=== PATIENT | male | born 1950 | race Caucasian/White ===

== ENCOUNTER 2019-02-27 08:25 | Inpatient (IN) | payer MEDICARE, MEDICAID ==
[~2019-02-27] VITALS: Ht 177.8 cm; Wt 97.9 kg
[~2019-02-27 08:25] MED LIST: ATEN100T; GABA300C10; OXYM10TA19 PO
[2019-02-27 08:59] LABS: BASOPHILS # (AUTO) 0.05 x10^3/uL (0-0.1); BASOPHILS % (AUTO) 0 % (0-1); EOSINOPHILS # (AUTO) 0.06 x10^3/uL (0-0.4); EOSINOPHILS % (AUTO) 1 % (1-7); LYMPHOCYTES # (AUTO) 0.84 x10^3/uL (1-3.4); LYMPHOCYTES % (AUTO) 6 % (22-44); MD NO; MEAN CORPUSCULAR HEMOGLOBIN 26.1 pg (27.5-34.5); MEAN CORPUSCULAR HGB CONC 32.2 g/dL (33.2-36.2); MEAN CORPUSCULAR VOLUME 81.1 fL (81-97); MEAN PLATELET VOLUME 7.2 fL (7.4-10.4); MONOCYTES # (AUTO) 0.58 x10^3/uL (0.2-0.8); MONOCYTES % (AUTO) 4 % (2-9); NEUTROPHILS # (AUTO) 11.94 x10^3/uL (1.8-6.8); NEUTROPHILS % (AUTO) 89 % (42-75); PLATELET COUNT 616 x10^3/uL (130-400); RED BLOOD COUNT 3.52 x10^6/uL (4.38-5.82); RED CELL DISTRIBUTION WIDTH 16.7 % (9.4-14.8)
[2019-02-27 09:08] LABS: CHLORIDE 100 mmol/L (98-107)
[2019-02-27 09:09] LABS: ALBUMIN 2.5 g/dL (3.4-5.0); ANION GAP 8 mmol/L (5-15); CALCIUM 8.6 mg/dL (8.5-10.1)
[2019-02-27 09:14] LABS: CREATININE 4.48 mg/dL (0.7-1.3)
[2019-02-27] MEDS ORDERED: FUROSEMIDE 20 MG/2 ML ONE (09:21)
--- NOTE | 2019-02-27 09:29 | NUR ---
Pt has greater than 999 mL of urine in bladder at this time per bladder scanner. EDMD aware.
[2019-02-27] MEDS ORDERED: FUROSEMIDE 20 MG/2 ML IV ONE (09:30)
[2019-02-27 10:02] LABS: ALBUMIN 2.5 g/dL (3.4-5.0)
[2019-02-27 10:07] LABS: ALANINE AMINOTRANSFERASE 37 U/L (12-78); ALKALINE PHOSPHATASE 95 U/L (45-117); BILIRUBIN, DIRECT 0.2 mg/dL (0.1-0.2); BILIRUBIN,INDIRECT 0.6 mg/dL (0.0-2.0); BILIRUBIN,TOTAL 0.8 mg/dL (0.2-1.0); TOTAL PROTEIN 7.8 g/dL (6.4-8.2)
[2019-02-27 10:10] LABS: TROPONIN I 0.863 ng/mL (0.000-0.045)
--- NOTE | 2019-02-27 10:19 | NUR ---
Pt transported on gurney to . NADN. No needs expressed.
[2019-02-27] MEDS ORDERED: ASPIRIN 81 MG TABLET CHEW PO ONE (10:30)
[2019-02-27 11:38] LABS: MICROSCOPIC AUTO
[2019-02-27 11:40] LABS: CULTURE INDICATED? YES
[2019-02-27] MEDS ORDERED: ASPIRIN 81 MG TABLET CHEW ONE (11:55)
[2019-02-27] MEDS ORDERED: FENTANYL PATCH TD (11:57)
[2019-02-27] MEDS ORDERED: hydrALAzine 20 MG/ML, 1ML IVPush PRN (12:00)
[2019-02-27] MEDS ORDERED: ONDANSETRON 2MG/ML, 2ML IVPush PRN (12:00)
[2019-02-27] MEDS ORDERED: morphine SULFATE 10 MG/ML, 1ML IVPush PRN (12:00)
[2019-02-27] MEDS ORDERED: FENTANYL 12 MCG PATCH TD SCH (12:30)
[2019-02-27] MEDS: CEFTRIAXONE PMX 1GM/50ML 50 ML IV ONE ×2 (12:48→13:14)
[2019-02-27] MEDS ORDERED: TAMSULOSIN 0.4 MG CAP.ER.24H ONE (12:52)
[2019-02-27] MEDS ORDERED: CEFTRIAXONE PMX 1GM/50ML 50 ML ONE ×2 (12:53→13:38)
[2019-02-27] MEDS ORDERED: POTASSIUM CHLORIDE 20 MEQ TAB.ER.PRT ONE (12:53)
[2019-02-27] MEDS ORDERED: HEPARIN 5,000 UNITS/ML, 1ML ONE (12:53)
[2019-02-27] MEDS: HEPARIN 5,000 UNITS/ML, 1ML SQ SCH ×2 (13:13→21:06)
[2019-02-27] MEDS: POTASSIUM CHLORIDE 20 MEQ TAB.ER.PRT PO SCH (13:13)
[2019-02-27] MEDS: TAMSULOSIN 0.4 MG CAP.ER.24H PO SCH (13:13)
--- NOTE | 2019-02-27 13:21 | NUR ---
Provided pt hospital bed. Pt appreciative. Provided pt cardiac lunch tray. Pt appreciative. Pt states, "I am feeling better." Provided medications per EMAR. NADN. No other needs expressed. Pt has friend at bedside. Call light within reach. Pt reconnected to stockroom keeper. NIBP cuff, and continous pulse ox monitor.
[2019-02-27] MEDS ORDERED: CEFTRIAXONE PMX 2GM/50ML 50 ML ONE (13:28)
[2019-02-27] MEDS: CEFTRIAXONE PMX 2GM/50ML 50 ML IV SCH (13:52)
--- NOTE | 2019-02-27 13:54 | NUR ---
Patient received a total of 2Gm/100mL Ceftriaxone Pmx. Dose was received in two administrations of 1Gm/50mL. Verbal order discussed with admitting MD Navarro.
--- NOTE | 2019-02-27 15:31 | NUR ---
Pt transfered to floor from ED and left with all personal belongings. LORI. Pt left with all personal belongings.
[2019-02-27 15:41] VITALS: BP 114/55
[2019-02-27 15:43] LABS: TROPONIN I 0.825 ng/mL (0.000-0.045)
[2019-02-27] MEDS ORDERED: FUROSEMIDE 40 MG/4 ML IV SCH (17:00)
[2019-02-27 20:17] VITALS: BP 128/69
[2019-02-27] MEDS: ACETAMINOPHEN 325 MG TABLET PO PRN (21:06)
[2019-02-28] MEDS: ACETAMINOPHEN 325 MG TABLET PO PRN ×2 (01:19→20:05)
[2019-02-28 02:00] VITALS: BP 119/68
[2019-02-28] MEDS: HEPARIN 5,000 UNITS/ML, 1ML SQ SCH ×3 (04:35→20:05)
[2019-02-28 05:21] LABS: BASOPHILS # (AUTO) 0.01 x10^3/uL (0-0.1); BASOPHILS % (AUTO) 0 % (0-1); EOSINOPHILS # (AUTO) 0.08 x10^3/uL (0-0.4); EOSINOPHILS % (AUTO) 1 % (1-7); LYMPHOCYTES # (AUTO) 0.85 x10^3/uL (1-3.4); LYMPHOCYTES % (AUTO) 8 % (22-44); MD NO; MEAN CORPUSCULAR HEMOGLOBIN 25.7 pg (27.5-34.5); MEAN CORPUSCULAR HGB CONC 31.2 g/dL (33.2-36.2); MEAN CORPUSCULAR VOLUME 82.4 fL (81-97); MEAN PLATELET VOLUME 7.4 fL (7.4-10.4); MONOCYTES # (AUTO) 0.59 x10^3/uL (0.2-0.8); MONOCYTES % (AUTO) 5 % (2-9); NEUTROPHILS # (AUTO) 9.44 x10^3/uL (1.8-6.8); NEUTROPHILS % (AUTO) 86 % (42-75); PLATELET COUNT 533 x10^3/uL (130-400); RED BLOOD COUNT 3.22 x10^6/uL (4.38-5.82); RED CELL DISTRIBUTION WIDTH 17.3 % (9.4-14.8)
[2019-02-28 05:28] LABS: ALBUMIN 1.9 g/dL (3.4-5.0); ANION GAP 5 mmol/L (5-15); CALCIUM 7.9 mg/dL (8.5-10.1); CHLORIDE 108 mmol/L (98-107)
[2019-02-28 05:33] LABS: ALANINE AMINOTRANSFERASE 25 U/L (12-78); ALKALINE PHOSPHATASE 78 U/L (45-117); BILIRUBIN,TOTAL 0.6 mg/dL (0.2-1.0); CHOL/HDL RATIO 2.5; CHOLESTEROL, TOTAL 123 mg/dL (140-239); CREATININE 1.98 mg/dL (0.7-1.3); HDL CHOL % 40 % (26-37); HDL CHOLESTEROL (DIRECT) 49 mg/dL (40-60); LDL CHOLESTEROL,CALCULATED 50 mg/dL (54-169); TOTAL PROTEIN 6.8 g/dL (6.4-8.2); TRIGLYCERIDES 119 mg/dL (50-200); VLDL CHOLESTEROL 24 mg/dL (0-25)
[2019-02-28] MEDS ORDERED: ERGOCALCIFEROL 50,000 UNIT CAPSULE PO SCH (08:00)
[2019-02-28 08:24] VITALS: BP 119/70
[2019-02-28] MEDS: IRON SUCROSE COMPLEX 100MG/5ML IV SCH (10:29)
[2019-02-28] MEDS: TAMSULOSIN 0.4 MG CAP.ER.24H PO SCH (10:30)
[2019-02-28] MEDS: POTASSIUM CHLORIDE 20 MEQ TAB.ER.PRT PO SCH (10:30)
[2019-02-28] MEDS: FAMOTIDINE 20 MG TABLET PO SCH (12:18)
[2019-02-28] MEDS: CEFTRIAXONE PMX 2GM/50ML 50 ML IV SCH (12:23)
[2019-02-28 14:00] VITALS: BP 140/62
[2019-02-28] MEDS ORDERED: POLYETHYLENE GLYCOL 17 GM PACKET NG ONE (18:00)
[2019-02-28 19:34] VITALS: BP 155/85
[2019-02-28] MEDS: SENNA 176 MG/5 ML ORAL SOL NG SCH (22:00)
[2019-02-28] MEDS: DOCUSATE 100 MG CAPSULE PO SCH (22:00)
[2019-03-01 00:40] VITALS: BP 130/78
[2019-03-01] MEDS ORDERED: DIPHENHYDRAMINE 25 MG CAPSULE ONE (00:55)
[2019-03-01] MEDS: DIPHENHYDRAMINE 25 MG CAPSULE PO PRN ×2 (00:57→20:47)
[2019-03-01] MEDS: HEPARIN 5,000 UNITS/ML, 1ML SQ SCH ×3 (05:37→20:47)
[2019-03-01] MEDS: IRON SUCROSE COMPLEX 100MG/5ML IV SCH (08:14)
[2019-03-01] MEDS: FAMOTIDINE 20 MG TABLET PO SCH (08:15)
[2019-03-01] MEDS: SENNA 176 MG/5 ML ORAL SOL NG SCH (08:15)
[2019-03-01] MEDS: TAMSULOSIN 0.4 MG CAP.ER.24H PO SCH (08:15)
[2019-03-01] MEDS: POTASSIUM CHLORIDE 20 MEQ TAB.ER.PRT PO SCH (08:15)
[2019-03-01] MEDS: DOCUSATE 100 MG CAPSULE PO SCH (08:16)
[2019-03-01 08:53] VITALS: BP 143/82
[2019-03-01 09:27] LABS: ALBUMIN 2.3 g/dL (3.4-5.0); ANION GAP 8 mmol/L (5-15); CHLORIDE 111 mmol/L (98-107); CREATININE 1.18 mg/dL (0.7-1.3)
[2019-03-01] MEDS: NEUTRA PHOS K 250 MG TABLET PO SCH ×2 (10:50→20:47)
[2019-03-01] MEDS: CEFTRIAXONE PMX 2GM/50ML 50 ML IV SCH (12:08)
[2019-03-01 14:13] VITALS: BP 145/86
[2019-03-01 19:55] VITALS: BP 137/71
[2019-03-01] MEDS: ACETAMINOPHEN 325 MG TABLET PO PRN (20:47)
[2019-03-02 01:48] VITALS: BP 156/91
[2019-03-02] MEDS: HEPARIN 5,000 UNITS/ML, 1ML SQ SCH ×2 (04:05→12:12)
[2019-03-02 08:25] VITALS: BP 159/89
[2019-03-02] MEDS: SENNA 176 MG/5 ML ORAL SOL NG SCH (09:00)
[2019-03-02] MEDS: DOCUSATE 100 MG CAPSULE PO SCH (09:00)
[2019-03-02] MEDS ORDERED: METOPROLOL TARTRATE 25 MG TABLET PO SCH (09:00)
[2019-03-02] MEDS: POTASSIUM CHLORIDE 20 MEQ TAB.ER.PRT PO SCH (09:12)
[2019-03-02] MEDS: NEUTRA PHOS K 250 MG TABLET PO SCH (09:12)
[2019-03-02] MEDS: FAMOTIDINE 20 MG TABLET PO SCH (09:12)
[2019-03-02] MEDS: IRON SUCROSE COMPLEX 100MG/5ML IV SCH (09:13)
[2019-03-02] MEDS: TAMSULOSIN 0.4 MG CAP.ER.24H PO SCH (09:13)
[2019-03-02] MEDS: CEFTRIAXONE PMX 2GM/50ML 50 ML IV SCH (12:12)
[2019-03-02] MEDS ORDERED: NEUTRA PHOS K 250 MG TABLET PO SCH (12:30)
[2019-03-02] MEDS ORDERED: FENTANYL REMOVE PATCH NOTE XX SCH (12:30)
[2019-03-02 12:48] VITALS: BP 142/83
[2019-03-02] MEDS ORDERED: TAMS-11 PO (12:48)
[2019-03-02] MEDS ORDERED: CEFD300C37 PO (12:48)
[2019-03-02] MEDS ORDERED: METO25TA35 PO (12:48)
[2019-03-02] MEDS ORDERED: FERR325T18 PO (12:48)
[2019-03-02] MEDS ORDERED: ERGO500017 PO (12:48)
[2019-03-02] MEDS ORDERED: PHOS250T3 PO (12:48)
== END 2019-03-02 16:39 | disposition home health service (06) | DRG 871 ==
LOC: ED 10:41 → EDIP 11:03 → 5SO 15:10 → DCLOUNGE 03-02 16:20
PROVIDERS: ADMIT Internal Medicine; ATTEND Internal Medicine
PROC: 0T9B70Z Drainage of Bladder with Drainage Device, Via Natural or Artificial Opening (ICD-10-PCS; principal; 2019-02-27)
DX: A41.9 Sepsis, unspecified organism (principal); J96.01 Acute respiratory failure with hypoxia; N13.6 Pyonephrosis; N17.9 Acute kidney failure, unspecified; I13.0 Hypertensive heart and chronic kidney disease with heart failure and stage 1 through stage 4 chronic kidney disease, or unspecified chronic kidney disease; I50.9 Heart failure, unspecified; Z88.0 Allergy status to penicillin; Z91.048 Other nonmedicinal substance allergy status; D50.9 Iron deficiency anemia, unspecified; E55.9 Vitamin D deficiency, unspecified; E86.0 Dehydration; G89.29 Other chronic pain; I25.10 Atherosclerotic heart disease of native coronary artery without angina pectoris; K59.00 Constipation, unspecified; N18.9 Chronic kidney disease, unspecified; N28.1 Cyst of kidney, acquired; N40.1 Benign prostatic hyperplasia with lower urinary tract symptoms; R33.8 Other retention of urine; Z95.5 Presence of coronary angioplasty implant and graft
CPT/HCPCS: 36415; 71045; 76770; 80048; 80053; 80061; 80069; 80076; 81001; 82040; 82306; 82728; 83540; 83550; 83605; 83735; 83880; 83970; 84100; 84145; 84443; 84466; 84484; 85025; 87040; 87086; 93005; 96374; 96375; C8929; G0378; J0696; J1644; J1756; Q9957; J1940; Q0163

== ENCOUNTER 2019-03-13 10:19 | Emergency (ER) | payer MEDICARE, MEDICAID ==
[~2019-03-13] VITALS: Ht 177.8 cm; Wt 92.1 kg
[~2019-03-13 10:19] MED LIST changes: +CEFD300C37 PO; +ERGO500017 PO; +FENTANYL PATCH TD; +FERR325T18 PO; +METO25TA35 PO; +PHOS250T3 PO; +TAMS-11 PO
--- NOTE | 2019-03-13 11:52 | NUR ---
PT AMBULATORY TO STEADY GAIT TO ROOM 21 WITH STAFF.
--- NOTE | 2019-03-13 12:04 | NUR ---
PT HERE WITH C/O NEEDING CATHETER REMOVED. PT STATES PREVIOUSLY ADMITTED 7 DAYS AGO FOR CHF EXACERBATION. PT STATES HE NEEDS THE CATHETER OUT PER HIS DISCHARGE PAPERWORK. PT DRESSED IN GOWN, ATTACHED TO MONITOR, MD AT BEDSIDE FOR EXAM. PT HAS CATHETER AND STATES HE HAS HAD DIFFICULTY IN CARING FOR IT. NAD, ROOM AIR, CALL LIGHT WITHIN REACH. SIDERAIL X [address]
--- NOTE | 2019-03-13 12:06 | NUR ---
PER MD, REMOVED LAGUERRE. LAGUERRE REMOVED BY THIS RN. COUDE CATHETER REMOVED WITH NO DISCOMFORT PER PT. URINAL AT BEDSIDE FOR VOIDING POST LAGUERRE REMOVAL.
--- NOTE | 2019-03-13 12:36 | NUR ---
PT ASSISTED TO EOB TO VOID. STEADY GAIT.
--- NOTE | 2019-03-13 13:08 | NUR ---
PT STATES HE CANNOT VOID, PLAN TO UPDATE MD AND DO BLADDER SCAN.
--- NOTE | 2019-03-13 13:17 | NUR ---
PER TASK RN: PT UNABLE TO VOID, BLADDER SCAN PERFORMED AND RESULTS WAS 80ML. PT GIVEN WATER AND CRANBERRY JUICE, WILL ATTEMPT TO VOID AGAIN. PT EDUCATED THAT IF UNABLE TO VOID, POSSIBLITY OF NEED FOR CATHETER PROIR TO DISCHARGE.
--- NOTE | 2019-03-13 13:30 | NUR ---
PT STATES UNABLE TO VOID, REQUESTING CATHETER, MD TO BE UPDATED.
--- NOTE | 2019-03-13 14:39 | NUR ---
TASK RN AT BEDSIDE FOR ATTEMPT AT LAGUERRE PLACEMENT.
[2019-03-13 14:44] VITALS: BP 125/70
--- NOTE | 2019-03-13 14:46 | NUR ---
BREAK NOTE: LAGUERRE CATH WAS PLACED. STERILE PROCEDURES MAINTAINED. PT.'S VITALS ARE STABLE.
--- NOTE | 2019-03-13 15:26 | NUR ---
Patient/Caregiver given discharge instructions and they have confirmed that they understand the instructions. Patient ambulatory with steady gait.
== END 2019-03-13 16:01 | disposition home or self-care (01) ==
LOC: ED 13:18
DX: N40.1 Benign prostatic hyperplasia with lower urinary tract symptoms (principal); R33.8 Other retention of urine; I50.9 Heart failure, unspecified
CPT/HCPCS: 51702; 99283; 99284

== ENCOUNTER → 2019-04-24 | Outpatient (CLI) | payer MEDICARE, MEDICAID ==
[~2019-04-24] MED LIST changes: +REGADENOSON 0.4 MG/5 ML SYRINGE ONE
== END | disposition home or self-care (01) ==
LOC: CFH 07:15
PROVIDERS: ATTEND Internal Medicine Cardiovascular Disease
DX: I25.9 Chronic ischemic heart disease, unspecified (principal)
CPT/HCPCS: 78452; 93017; 93306; A9502; J2785

== ENCOUNTER 2019-05-18 06:53 | Observation (INO) | payer MEDICARE, MEDICAID ==
[~2019-05-18] VITALS: Ht 175.3 cm; Wt 86.2 kg
[~2019-05-18 06:53] MED LIST changes: -REGADENOSON 0.4 MG/5 ML SYRINGE ONE
[2019-05-18] MEDS ORDERED: ASPIRIN 325 MG TABLET EC PO ONE (08:00)
[2019-05-18] MEDS ORDERED: PLEASE ENTER HEIGHT AND WEIGHT MC SCH (08:00)
[2019-05-18 08:25] VITALS: BP 149/87
[2019-05-18] MEDS: SODIUM CHLORIDE 0.9% 1,000 ML IV SCH ×5 (08:30→19:48)
[2019-05-18] MEDS ORDERED: LUBI8CAP4 PO (08:33)
[2019-05-18] MEDS ORDERED: POTA20PA25 PO (08:34)
[2019-05-18] MEDS ORDERED: GABA300C10 PO (08:34)
[2019-05-18] MEDS ORDERED: OMEP-110 PO (08:35)
[2019-05-18] MEDS ORDERED: HYDR-826 PO (08:36)
[2019-05-18 08:37] LABS: ALBUMIN 3.2 g/dL (3.4-5.0); ANION GAP 6 mmol/L (5-15); CALCIUM 8.7 mg/dL (8.5-10.1); CHLORIDE 109 mmol/L (98-107)
[2019-05-18] MEDS ORDERED: METO25TA4 PO (08:37)
[2019-05-18 08:40] LABS: ALANINE AMINOTRANSFERASE 23 U/L (12-78); ALKALINE PHOSPHATASE 94 U/L (45-117); BILIRUBIN,TOTAL 0.7 mg/dL (0.2-1.0); CREATININE 0.96 mg/dL (0.7-1.3); TOTAL PROTEIN 7.6 g/dL (6.4-8.2)
[2019-05-18 09:08] LABS: BASOPHILS # (AUTO) 0.09 x10^3/uL (0-0.1); BASOPHILS % (AUTO) 1 % (0-1); EOSINOPHILS # (AUTO) 0.06 x10^3/uL (0-0.4); EOSINOPHILS % (AUTO) 1 % (1-7); LYMPHOCYTES # (AUTO) 1.22 x10^3/uL (1-3.4); LYMPHOCYTES % (AUTO) 14 % (22-44); MD NO; MEAN CORPUSCULAR HEMOGLOBIN 25.6 pg (27.5-34.5); MEAN CORPUSCULAR HGB CONC 32.2 g/dL (33.2-36.2); MEAN CORPUSCULAR VOLUME 79.7 fL (81-97); MEAN PLATELET VOLUME 9.4 fL (7.4-10.4); MONOCYTES # (AUTO) 0.55 x10^3/uL (0.2-0.8); MONOCYTES % (AUTO) 6 % (2-9); NEUTROPHILS % (AUTO) 78 % (42-75); PLATELET COUNT 288 x10^3/uL (130-400); RED BLOOD COUNT 4.87 x10^6/uL (4.38-5.82)
[2019-05-18] MEDS ORDERED: HEPARIN 1,000 UNITS/ML, 10ML ONE (10:10)
[2019-05-18] MEDS ORDERED: BIVALIRUDIN 250 MG ONE (10:21)
[2019-05-18] MEDS ORDERED: PRASUGREL 10 MG TABLET ONE (10:22)
[2019-05-18] MEDS ORDERED: MIDAZOLAM 1 MG/ML, 5ML ONE (10:26)
[2019-05-18] MEDS ORDERED: FENTANYL PF 100 MCG/2ML ONE (10:26)
[2019-05-18 11:32] LABS: PROTHROMBIN TIME 10.6 Seconds (9.6-11.5)
[2019-05-18] MEDS ORDERED: PROPOFOL 10 MG/ML, 20ML ONE (15:15)
[2019-05-18 16:47] VITALS: BP 159/89
[2019-05-18] MEDS: GABAPENTIN 100 MG CAPSULE PO SCH ×2 (17:17→21:42)
[2019-05-18 19:10] VITALS: BP 142/81
[2019-05-18] MEDS ORDERED: ATORVASTATIN 40 MG TABLET PO SCH (21:00)
[2019-05-18 21:39] VITALS: BP 127/72
[2019-05-18] MEDS: METOPROLOL TARTRATE 25 MG TAB PO SCH (21:42)
[2019-05-18] MEDS ORDERED: CALCIUM CARBONATE 500 MG TAB.CHEW PO PRN (23:00)
[2019-05-19 00:57] VITALS: BP 123/76
[2019-05-19] MEDS: SODIUM CHLORIDE 0.9% 1,000 ML IV SCH ×2 (00:59→11:38)
[2019-05-19] MEDS ORDERED: NITROGLYCERIN 0.4 MG/SPRAY SL PRN (02:00)
[2019-05-19] MEDS ORDERED: NITROGLYCERIN 0.4 MG BOTTLE (25 TABS) SL PRN (02:00)
[2019-05-19] MEDS ORDERED: MAALOX/HYOSCYAMINE/LIDOCAINE 45 ML BTL PO ONE (02:30)
[2019-05-19 04:29] LABS: ANION GAP 6 mmol/L (5-15); CALCIUM 8.4 mg/dL (8.5-10.1); CHLORIDE 109 mmol/L (98-107); CREATININE 0.94 mg/dL (0.7-1.3)
[2019-05-19] MEDS ORDERED: ASPIRIN 81 MG TABLET EC PO SCH (06:00)
[2019-05-19] MEDS: GABAPENTIN 100 MG CAPSULE PO SCH ×2 (06:01→11:22)
[2019-05-19] MEDS ORDERED: OMEPRAZOLE 20 MG CAPSULE.DR PO SCH (07:30)
[2019-05-19] MEDS ORDERED: FERROUS SULFATE 325 MG TABLET PO SCH (09:00)
[2019-05-19] MEDS ORDERED: LUBIPROSTONE 8 MCG CAPSULE PO SCH ×2 (09:00)
[2019-05-19] MEDS ORDERED: POTASSIUM CHLORIDE 20 MEQ PACKET PO SCH (09:00)
[2019-05-19] MEDS ORDERED: TAMSULOSIN 0.4 MG CAP.ER.24H PO SCH (09:00)
[2019-05-19] MEDS: METOPROLOL TARTRATE 25 MG TAB PO SCH (09:19)
[2019-05-19] MEDS ORDERED: ATOR40TA78 PO (09:37)
[2019-05-19] MEDS ORDERED: OMEP-110 PO (09:37)
[2019-05-19] MEDS ORDERED: ASPI81TA45 PO (09:37)
[2019-05-19 10:30] VITALS: BP 131/83
== END 2019-05-19 14:24 | disposition home or self-care (01) ==
LOC: CACL 06:53 → ORIP 11:34 → INTOOBSV 11:34 → 5SO 17:02
PROVIDERS: ADMIT Internal Medicine Cardiovascular Disease; ATTEND Internal Medicine Cardiovascular Disease
DX: I25.10 Atherosclerotic heart disease of native coronary artery without angina pectoris (principal); I47.1 Supraventricular tachycardia; E78.5 Hyperlipidemia, unspecified; I12.9 Hypertensive chronic kidney disease with stage 1 through stage 4 chronic kidney disease, or unspecified chronic kidney disease; I27.20 Pulmonary hypertension, unspecified; I34.0 Nonrheumatic mitral (valve) insufficiency; N18.9 Chronic kidney disease, unspecified; N40.0 Benign prostatic hyperplasia without lower urinary tract symptoms; K21.9 Gastro-esophageal reflux disease without esophagitis; Z79.899 Other long term (current) drug therapy; Z79.82 Long term (current) use of aspirin
CPT/HCPCS: 36415; 80048; 80053; 85025; 85610; 93005; 93312; 93321; 93325; 93458; C1769; C1894; G0378; J0583; J1644; J2250; J2704; J3010; J7030; Q0177; Q9967

== ENCOUNTER 2019-07-12 11:34 | Inpatient (IN) | payer MEDICARE, MEDICAID ==
[~2019-07-12] VITALS: Ht 175.3 cm; Wt 100.7 kg
[~2019-07-12 11:34] MED LIST changes: +ASPI81TA45 PO; +ATOR40TA78 PO; +GABA300C10 PO; +HYDR-826 PO; +LUBI8CAP4 PO; +METO25TA4 PO; +OMEP-110 PO; +POTA20PA25 PO
[2019-07-12] MEDS ORDERED: SENN1TAB67 PO (14:15)
[2019-07-12] MEDS ORDERED: FINA5TAB4 PO (14:15)
[2019-07-12] MEDS ORDERED: LUBI24CA7 PO (14:15)
[2019-07-12] MEDS ORDERED: AMIT10TA PO (14:15)
[2019-07-12] MEDS ORDERED: ASPI-496 PO (14:15)
[2019-07-12] MEDS ORDERED: TAMS-11 PO (14:15)
[2019-07-12] MEDS ORDERED: ATOR40TA78 PO (14:15)
[2019-07-12] MEDS ORDERED: GABA100C PO (14:15)
[2019-07-12] MEDS ORDERED: POTA10TA6 PO (14:15)
[2019-07-12] MEDS ORDERED: ISOS10TA6 PO (14:15)
[2019-07-12] MEDS ORDERED: SENN15TA PO (14:15)
[2019-07-12] MEDS ORDERED: [UNRECOGNIZED DRUG - CODE] TD (14:15)
[2019-07-12] MEDS ORDERED: FURO20TA3 PO (14:15)
[2019-07-12 14:17] LABS: MICROSCOPIC AUTO
[2019-07-12 14:43] LABS: BASOPHILS # (AUTO) 0.04 x10^3/uL (0-0.1); BASOPHILS % (AUTO) 0 % (0-1); EOSINOPHILS # (AUTO) 0.25 x10^3/uL (0-0.4); EOSINOPHILS % (AUTO) 2 % (1-7); LYMPHOCYTES # (AUTO) 1.69 x10^3/uL (1-3.4); LYMPHOCYTES % (AUTO) 15 % (22-44); MD NO; MEAN CORPUSCULAR HEMOGLOBIN 26.5 pg (27.5-34.5); MEAN CORPUSCULAR HGB CONC 32.6 g/dL (33.2-36.2); MEAN CORPUSCULAR VOLUME 81.3 fL (81-97); MEAN PLATELET VOLUME 8.5 fL (7.4-10.4); MONOCYTES # (AUTO) 0.65 x10^3/uL (0.2-0.8); MONOCYTES % (AUTO) 6 % (2-9); NEUTROPHILS % (AUTO) 76 % (42-75); PLATELET COUNT 309 x10^3/uL (130-400); RED BLOOD COUNT 5.36 x10^6/uL (4.38-5.82); RED CELL DISTRIBUTION WIDTH 18.5 % (9.4-14.8)
[2019-07-12 14:53] LABS: ALANINE AMINOTRANSFERASE 30 U/L (12-78); ALBUMIN 3.7 g/dL (3.4-5.0); ANION GAP 6 mmol/L (5-15); CALCIUM 9.5 mg/dL (8.5-10.1); CHLORIDE 107 mmol/L (98-107); CREATININE 1.12 mg/dL (0.7-1.3)
[2019-07-12 14:56] LABS: ALKALINE PHOSPHATASE 118 U/L (45-117); BILIRUBIN,TOTAL 0.9 mg/dL (0.2-1.0); TOTAL PROTEIN 8.3 g/dL (6.4-8.2)
[2019-07-12 15:09] LABS: INTERNATIONAL NORMALIZED RATIO 1.01 (0.93-1.1); PROTHROMBIN TIME 10.7 Seconds (9.6-11.5)
[2019-07-13 05:00] VITALS: BP_SYST 148; BP_SYST 161; BP_DIAS 85; BP_DIAS 86
[2019-07-13] MEDS ORDERED: DO NOT GIVE MC SCH (05:00)
[2019-07-13] MEDS ORDERED: CHLORHEXIDINE 15 ML UDC MM SCH (05:00)
[2019-07-13] MEDS ORDERED: INSULIN LISPRO 100 UNITS/ML, PEN SQ-INSULIN SCH (05:00)
[2019-07-13] MEDS ORDERED: PAPAVERINE 30 MG/ML, 2ML ONE (06:41)
[2019-07-13] MEDS ORDERED: HEPARIN 1,000 UNITS/ML, 10ML ONE (06:41)
[2019-07-13 06:59] VITALS: BP 129/80
[2019-07-13] MEDS ORDERED: FENTANYL PF 250 MCG/5ML ONE ×6 (07:04→10:30)
[2019-07-13] MEDS ORDERED: MIDAZOLAM 10MG/2 ML ONE (07:04)
[2019-07-13] MEDS ORDERED: AMINOCAPROIC ACID 250 MG/ML, 20ML ONE ×4 (07:06)
[2019-07-13] MEDS ORDERED: HEPARIN 1,000 UNITS/ML, 10ML IV ONE (07:18)
[2019-07-13] MEDS ORDERED: PAPAVERINE 30 MG/ML, 2ML IV ONE (07:18)
[2019-07-13] MEDS ORDERED: DOBUTAMINE 250 MG in SODIUM CHLORIDE 0.9% 230 ML IV PRN (07:26)
[2019-07-13] MEDS ORDERED: PHENYLEPHRINE 50 MG in SODIUM CHLORIDE 0.9% 245 ML IV PRN ×2 (07:26→07:30)
[2019-07-13] MEDS ORDERED: NITROGLYCERIN/D5W PMX 250 ML IV PRN (07:26)
[2019-07-13] MEDS ORDERED: DEXMEDETOMIDINE 200 MCG in SODIUM CHLORIDE 0.9% 48 ML IV PRN ×2 (07:26→07:30)
[2019-07-13] MEDS ORDERED: VASOPRESSIN 20 UNIT in SODIUM CHLORIDE 0.9% 99 ML IV PRN (07:26)
[2019-07-13] MEDS ORDERED: SODIUM CHLORIDE 0.9% 1,000 ML IV PRN (07:26)
[2019-07-13] MEDS ORDERED: DEXTROSE 50%, 50ML SYRINGE IVPush PRN (07:30)
[2019-07-13] MEDS ORDERED: MIDAZOLAM 1 MG/ML, 5ML IVPush PRN (07:30)
[2019-07-13] MEDS ORDERED: CEFUROXIME 1.5 GM in SODIUM CHLORIDE 0.9% 50 ML IVPB PRN (07:30)
[2019-07-13] MEDS ORDERED: PROCHLORPERAZINE 5 MG/ML, 2ML IVPush PRN (07:30)
[2019-07-13] MEDS ORDERED: ONDANSETRON 2MG/ML, 2ML IVPush PRN (07:30)
[2019-07-13] MEDS ORDERED: BISACODYL 10 MG SUPP PR PRN (07:30)
[2019-07-13] MEDS ORDERED: DEXTROSE 4 GM TAB.CHEW PO PRN (07:30)
[2019-07-13] MEDS ORDERED: GLUCAGON 1 MG IM PRN (07:30)
[2019-07-13] MEDS ORDERED: EPINEPHRINE 5 MG in SODIUM CHLORIDE 0.9% 245 ML IV PRN ×2 (07:30)
[2019-07-13] MEDS ORDERED: SODIUM BICARB 8.4%, 50ML SYRINGE IV PRN (07:30)
[2019-07-13] MEDS ORDERED: BISACODYL 5 MG EC TABLET PO PRN (07:30)
[2019-07-13] MEDS ORDERED: ACETAMINOPHEN 650 MG SUPP PR PRN (07:30)
[2019-07-13] MEDS ORDERED: REGULAR INSULIN 100 UNITS in SODIUM CHLORIDE 0.9% 99 ML IV PRN ×2 (07:30→09:00)
[2019-07-13] MEDS ORDERED: ALBUMIN HUMAN 5% 500 ML IV PRN (07:30)
[2019-07-13] MEDS ORDERED: MANNITOL PMX 20% 500 ML IVPB PRN (07:30)
[2019-07-13] MEDS ORDERED: VANCOMYCIN 1,400 MG in SODIUM CHLORIDE 0.9% 250 ML IV PRN (07:30)
[2019-07-13] MEDS ORDERED: POTASSIUM CHLORIDE 80 MEQ, SODIUM BICARBONATE 8.4% 10 MEQ, MAGNESIUM SULFATE 0.5 GM, LI... IV PRN (07:30)
[2019-07-13] MEDS ORDERED: MUPIROCIN OINT 2%, 22GM TP SCH (09:00)
[2019-07-13] MEDS: FINASTERIDE 5 MG TABLET PO SCH (09:00)
[2019-07-13] MEDS: AMITRIPTYLINE 10 MG TABLET PO SCH ×3 (09:00→20:40)
[2019-07-13] MEDS: SODIUM CHLORIDE FLUSH 10ML SYR IVF SCH ×4 (09:00→19:46)
[2019-07-13] MEDS ORDERED: INSULIN REGULAR 100 UNITS/ML, 3ML VIAL IVPush PRN (09:00)
[2019-07-13] MEDS: TAMSULOSIN 0.4 MG CAP.ER.24H PO SCH (09:00)
[2019-07-13] MEDS: MUPIROCIN OINT 2%, 22GM NAS SCH ×2 (09:00→20:39)
[2019-07-13] MEDS: LUBIPROSTONE 24 MCG CAPSULE PO SCH ×2 (09:00→16:27)
[2019-07-13] MEDS: DOCUSATE 100 MG CAPSULE PO SCH ×2 (09:00→20:39)
[2019-07-13] MEDS: KSCALE TO 4.5 IV SCH ×2 (09:30→18:00)
[2019-07-13] MEDS ORDERED: PROPOFOL 10 MG/ML, 20ML ONE (10:30)
[2019-07-13] MEDS: GABAPENTIN 100 MG CAPSULE PO SCH ×3 (11:00→20:39)
[2019-07-13] MEDS: INSULIN LISPRO 100 UNITS/ML, PEN SQ-INSULIN SCH ×3 (11:00→19:54)
[2019-07-13] MEDS ORDERED: CALCIUM CHLORIDE 10%, 10ML SYR ONE (11:22)
[2019-07-13] MEDS ORDERED: ROCURONIUM 10MG/ML,5ML ONE ×2 (11:36)
[2019-07-13] MEDS ORDERED: SODIUM BICARBONATE 1 MEQ/ML, 50ML VIAL ONE (12:19)
[2019-07-13] MEDS ORDERED: HEPARIN 1,000 UNITS/ML, 30ML ONE (12:20)
[2019-07-13] MEDS ORDERED: ALBUMIN HUMAN 25% 50 ML ONE (12:20)
[2019-07-13] MEDS ORDERED: LIDOCAINE 2%, 20ML ONE (12:20)
[2019-07-13 12:27] LABS: GLUCOSE BY BLOOD GAS ANALYZER 123 mg/dL (70-110); HEMOGLOBIN BY BLOOD GAS ANALYZ 11.5 g/dL (14.0-18.0); POTASSIUM BY BLOOD GAS ANALYZR 3.9 mmol/L (3.6-5.5)
[2019-07-13 12:45] LABS: INTERNATIONAL NORMALIZED RATIO 1.21 (0.93-1.1); PROTHROMBIN TIME 12.8 Seconds (9.6-11.5)
[2019-07-13] MEDS ORDERED: POTASSIUM CHLORIDE PMX 100 ML IVPB ONE (13:00)
[2019-07-13] MEDS: MAGNESIUM SULFATE 1 GM in SODIUM CHLORIDE 0.9% 100 ML IVPB SCH (13:06)
[2019-07-13] MEDS: FENTANYL 25 MCG PATCH TD SCH (13:06)
[2019-07-13] MEDS ORDERED: AMITRIPTYLINE 25 MG TABLET ONE (16:09)
[2019-07-13] MEDS: HYDROmorphone 1 MG/ML, 1ML INJ IVPush PRN ×2 (16:16→18:32)
[2019-07-13] MEDS: OXYcodone IR 5MG TABLET PO PRN ×2 (17:41→20:40)
[2019-07-13] MEDS: LACTATED RINGERS 1,000 ML IV PRN ×2 (18:11→22:16)
[2019-07-13] MEDS: CEFUROXIME 1.5 GM in SODIUM CHLORIDE 0.9% 50 ML IVPB SCH (18:32)
[2019-07-13] MEDS: VANCOMYCIN 1,300 MG in SODIUM CHLORIDE 0.9% 250 ML IVPB SCH (19:43)
[2019-07-13] MEDS: ATORVASTATIN 40 MG TABLET PO SCH (20:40)
[2019-07-13] MEDS: ACETAMINOPHEN 325 MG TABLET PO PRN (20:40)
[2019-07-14] MEDS: OXYcodone IR 5MG TABLET PO PRN ×5 (01:10→17:25)
[2019-07-14] MEDS: ACETAMINOPHEN 325 MG TABLET PO PRN ×3 (01:10→17:25)
[2019-07-14] MEDS: GABAPENTIN 100 MG CAPSULE PO SCH ×4 (05:30→20:54)
[2019-07-14 06:00] VITALS: BP 118/58
[2019-07-14] MEDS: KSCALE TO 4.5 IV SCH ×2 (06:00)
[2019-07-14 06:44] LABS: MEAN CORPUSCULAR HEMOGLOBIN 26.4 pg (27.5-34.5); MEAN CORPUSCULAR HGB CONC 32.5 g/dL (33.2-36.2); MEAN CORPUSCULAR VOLUME 81.1 fL (81-97); MEAN PLATELET VOLUME 8.7 fL (7.4-10.4); PLATELET COUNT 172 x10^3/uL (130-400); RED BLOOD COUNT 4.01 x10^6/uL (4.38-5.82); RED CELL DISTRIBUTION WIDTH 18.2 % (9.4-14.8)
[2019-07-14 06:51] LABS: INTERNATIONAL NORMALIZED RATIO 1.08 (0.93-1.1); PROTHROMBIN TIME 11.5 Seconds (9.6-11.5)
[2019-07-14 06:52] LABS: ALBUMIN 2.8 g/dL (3.4-5.0); ANION GAP 3 mmol/L (5-15); CALCIUM 7.9 mg/dL (8.5-10.1); CHLORIDE 109 mmol/L (98-107); CREATININE 1.06 mg/dL (0.7-1.3)
[2019-07-14] MEDS: INSULIN LISPRO 100 UNITS/ML, PEN SQ-INSULIN SCH ×4 (07:00→20:56)
[2019-07-14 07:36] LABS: MD YES
[2019-07-14 07:37] LABS: BAND#(MANUAL) 0.86 x10^3/uL; BANDS%(MANUAL) 5 % (0-7); BASOS#(MANUAL) 0.17 x10^3/uL (0-0.1); BASOS% (MANUAL) 1 % (0-1); EOS#(MANUAL) 0.17 x10^3/uL (0.0-0.4); EOS% (MANUAL) 1 % (1-7); LYMPH#(MANUAL) 0.17 x10^3/uL (1-3.4); LYMPHS% (MANUAL) 1 % (22-44); MONOS#(MANUAL) 0.51 x10^3/uL (0.3-2.7); MONOS% (MANUAL) 3 % (2-9); SEG#(MANUAL) 15.22 x10^3/uL (1.8-6.8); SEGS% (MANUAL) 89 % (42-75)
[2019-07-14 07:38] LABS: <PLATELET ESTIMATE> ADEQUATE; <PLT MORPHOLOGY> NORMAL PLT MORPH; ANISOCYTOSIS 1+; MICROCYTOSIS 1+
[2019-07-14 07:39] LABS: BASOPHILS # (AUTO) 0.08 x10^3/uL (0-0.1); BASOPHILS % (AUTO) 1 % (0-1); EOSINOPHILS # (AUTO) 0.04 x10^3/uL (0-0.4); EOSINOPHILS % (AUTO) 0 % (1-7); LYMPHOCYTES # (AUTO) 0.77 x10^3/uL (1-3.4); LYMPHOCYTES % (AUTO) 5 % (22-44); MONOCYTES # (AUTO) 0.98 x10^3/uL (0.2-0.8); MONOCYTES % (AUTO) 6 % (2-9); NEUTROPHILS # (AUTO) 15.22 x10^3/uL (1.8-6.8); NEUTROPHILS % (AUTO) 89 % (42-75)
[2019-07-14] MEDS: ASPIRIN 81 MG TABLET EC PO SCH (08:36)
[2019-07-14] MEDS: CHLORHEXIDINE 15 ML UDC MM SCH ×2 (08:36→20:54)
[2019-07-14] MEDS: LUBIPROSTONE 24 MCG CAPSULE PO SCH ×2 (08:36→16:15)
[2019-07-14] MEDS: DOCUSATE 100 MG CAPSULE PO SCH ×2 (08:36→20:55)
[2019-07-14] MEDS: MUPIROCIN OINT 2%, 22GM NAS SCH ×2 (08:36→20:55)
[2019-07-14] MEDS: TAMSULOSIN 0.4 MG CAP.ER.24H PO SCH (08:36)
[2019-07-14] MEDS: FINASTERIDE 5 MG TABLET PO SCH (08:36)
[2019-07-14] MEDS: AMITRIPTYLINE 10 MG TABLET PO SCH ×3 (08:36→20:55)
[2019-07-14] MEDS: CEFUROXIME 1.5 GM in SODIUM CHLORIDE 0.9% 50 ML IVPB SCH (08:36)
[2019-07-14] MEDS: VANCOMYCIN 1,300 MG in SODIUM CHLORIDE 0.9% 250 ML IVPB SCH (08:37)
[2019-07-14] MEDS: SODIUM CHLORIDE FLUSH 10ML SYR IVF SCH ×4 (08:37→21:00)
[2019-07-14] MEDS: MAGNESIUM SULFATE 1 GM in SODIUM CHLORIDE 0.9% 100 ML IVPB SCH (10:20)
[2019-07-14] MEDS ORDERED: WARFARIN 5 MG TABLET PO-COUM ONE (18:00)
[2019-07-14] MEDS ORDERED: KETOROLAC 30 MG/1 ML IVPush PRN ×2 (18:00)
[2019-07-14] MEDS: FAMOTIDINE 20 MG TABLET PO SCH (20:54)
[2019-07-14] MEDS: ATORVASTATIN 40 MG TABLET PO SCH (20:54)
[2019-07-15] MEDS: HYDROmorphone 1 MG/ML, 1ML INJ IVPush PRN (01:03)
[2019-07-15 04:34] LABS: MEAN CORPUSCULAR HEMOGLOBIN 26.7 pg (27.5-34.5); MEAN CORPUSCULAR HGB CONC 32.7 g/dL (33.2-36.2); MEAN CORPUSCULAR VOLUME 81.7 fL (81-97); MEAN PLATELET VOLUME 8.5 fL (7.4-10.4); PLATELET COUNT 133 x10^3/uL (130-400); RED BLOOD COUNT 3.44 x10^6/uL (4.38-5.82); RED CELL DISTRIBUTION WIDTH 18.8 % (9.4-14.8)
[2019-07-15 04:42] LABS: INTERNATIONAL NORMALIZED RATIO 1.07 (0.93-1.1); PROTHROMBIN TIME 11.4 Seconds (9.6-11.5)
[2019-07-15 04:43] LABS: ANION GAP 4 mmol/L (5-15); CALCIUM 7.9 mg/dL (8.5-10.1); CHLORIDE 103 mmol/L (98-107); CREATININE 0.91 mg/dL (0.7-1.3)
[2019-07-15 04:49] LABS: MD YES
[2019-07-15 04:50] LABS: ANISOCYTOSIS 1+; BAND#(MANUAL) 0.66 x10^3/uL; BANDS%(MANUAL) 4 % (0-7); LYMPH#(MANUAL) 0.49 x10^3/uL (1-3.4); LYMPHS% (MANUAL) 3 % (22-44); METAMYELOCYTES# (MANUAL) 0.16 x10^3/uL (0-0); METAMYELOCYTES% (MANUAL) 1 % (0-1); MICROCYTOSIS 1+; MONOS#(MANUAL) 0.16 x10^3/uL (0.3-2.7); MONOS% (MANUAL) 1 % (2-9); REACTIVE LYMPHS # (MANUAL) 0.16 x10^3/uL (0-0); REACTIVE LYMPHS % (MANUAL) 1 % (0-0); SEG#(MANUAL) 14.76 x10^3/uL (1.8-6.8); SEGS% (MANUAL) 90 % (42-75)
[2019-07-15 04:51] LABS: <PLATELET ESTIMATE> ADEQUATE; <PLT MORPHOLOGY> NORMAL PLT MORPH
[2019-07-15] MEDS: GABAPENTIN 100 MG CAPSULE PO SCH ×4 (05:19→20:59)
[2019-07-15] MEDS: INSULIN LISPRO 100 UNITS/ML, PEN SQ-INSULIN SCH ×4 (07:38→21:00)
[2019-07-15] MEDS: FINASTERIDE 5 MG TABLET PO SCH (07:40)
[2019-07-15] MEDS: LUBIPROSTONE 24 MCG CAPSULE PO SCH ×2 (07:40→17:48)
[2019-07-15] MEDS: CHLORHEXIDINE 15 ML UDC MM SCH ×2 (07:40→20:59)
[2019-07-15] MEDS: POTASSIUM CHLORIDE 20 MEQ TAB.ER.PRT PO SCH (07:40)
[2019-07-15] MEDS: TAMSULOSIN 0.4 MG CAP.ER.24H PO SCH (07:41)
[2019-07-15] MEDS: FAMOTIDINE 20 MG TABLET PO SCH ×2 (07:41→20:59)
[2019-07-15] MEDS: DOCUSATE 100 MG CAPSULE PO SCH ×2 (07:41→20:59)
[2019-07-15] MEDS: ASPIRIN 81 MG TABLET EC PO SCH (07:41)
[2019-07-15] MEDS: FUROSEMIDE 40 MG/4 ML IV SCH (07:41)
[2019-07-15] MEDS: AMITRIPTYLINE 10 MG TABLET PO SCH ×3 (07:41→20:59)
[2019-07-15] MEDS: SODIUM CHLORIDE FLUSH 10ML SYR IVF SCH ×4 (07:42→21:00)
[2019-07-15] MEDS: MUPIROCIN OINT 2%, 22GM NAS SCH ×2 (07:42→21:21)
[2019-07-15] MEDS: MAGNESIUM SULFATE 1 GM in SODIUM CHLORIDE 0.9% 100 ML IVPB SCH (08:04)
[2019-07-15] MEDS: OXYcodone IR 5MG TABLET PO PRN ×3 (08:51→21:33)
[2019-07-15] MEDS ORDERED: KETOROLAC 30 MG/1 ML ONE (09:49)
[2019-07-15] MEDS: KETOROLAC 30 MG/1 ML IV PRN ×2 (10:00→16:59)
[2019-07-15] MEDS ORDERED: KETOROLAC 30 MG/1 ML IM PRN (10:00)
[2019-07-15 12:54] VITALS: BP 111/70
[2019-07-15] MEDS ORDERED: WARFARIN 3 MG TABLET PO-COUM ONE (18:00)
[2019-07-15 19:00] VITALS: BP 108/71
[2019-07-15] MEDS: ATORVASTATIN 40 MG TABLET PO SCH (20:59)
[2019-07-15] MEDS: SULFAMETH./TRIMETHOPRIM DS 800MG/160MG TABLET PO SCH (21:21)
[2019-07-16] MEDS: KETOROLAC 30 MG/1 ML IV PRN ×3 (01:24→21:22)
[2019-07-16 01:42] VITALS: BP 142/82
[2019-07-16] MEDS: GABAPENTIN 100 MG CAPSULE PO SCH ×4 (05:25→21:18)
[2019-07-16] MEDS: OXYcodone IR 5MG TABLET PO PRN (05:57)
[2019-07-16 06:08] LABS: INTERNATIONAL NORMALIZED RATIO 1.07 (0.93-1.1); PROTHROMBIN TIME 11.3 Seconds (9.6-11.5)
[2019-07-16 06:12] LABS: BASOPHILS # (AUTO) 0.06 x10^3/uL (0-0.1); BASOPHILS % (AUTO) 1 % (0-1); EOSINOPHILS # (AUTO) 0.13 x10^3/uL (0-0.4); EOSINOPHILS % (AUTO) 1 % (1-7); LYMPHOCYTES # (AUTO) 0.76 x10^3/uL (1-3.4); LYMPHOCYTES % (AUTO) 6 % (22-44); MD NO; MEAN CORPUSCULAR HEMOGLOBIN 26.5 pg (27.5-34.5); MEAN CORPUSCULAR HGB CONC 32.6 g/dL (33.2-36.2); MEAN CORPUSCULAR VOLUME 81.1 fL (81-97); MEAN PLATELET VOLUME 8.6 fL (7.4-10.4); MONOCYTES # (AUTO) 0.88 x10^3/uL (0.2-0.8); MONOCYTES % (AUTO) 7 % (2-9); NEUTROPHILS # (AUTO) 11.58 x10^3/uL (1.8-6.8); NEUTROPHILS % (AUTO) 86 % (42-75); PLATELET COUNT 136 x10^3/uL (130-400); RED BLOOD COUNT 3.07 x10^6/uL (4.38-5.82); RED CELL DISTRIBUTION WIDTH 18.4 % (9.4-14.8)
[2019-07-16 06:17] LABS: ANION GAP 5 mmol/L (5-15); CALCIUM 8.1 mg/dL (8.5-10.1); CHLORIDE 102 mmol/L (98-107); CREATININE 0.84 mg/dL (0.7-1.3)
[2019-07-16] MEDS: INSULIN LISPRO 100 UNITS/ML, PEN SQ-INSULIN SCH ×2 (07:00→11:00)
[2019-07-16 08:04] VITALS: BP 155/85
[2019-07-16] MEDS ORDERED: POTASSIUM CHLORIDE 20 MEQ TAB.ER.PRT PO ONE (08:30)
[2019-07-16] MEDS ORDERED: FUROSEMIDE 20 MG/2 ML IV ONE (08:30)
[2019-07-16] MEDS ORDERED: POLYETHYLENE GLYCOL 17 GM PACKET NG PRN (08:30)
[2019-07-16] MEDS: FINASTERIDE 5 MG TABLET PO SCH (09:25)
[2019-07-16] MEDS: ASPIRIN 81 MG TABLET EC PO SCH (09:26)
[2019-07-16] MEDS: LUBIPROSTONE 24 MCG CAPSULE PO SCH ×2 (09:27→16:44)
[2019-07-16] MEDS: AMITRIPTYLINE 10 MG TABLET PO SCH ×3 (09:27→21:18)
[2019-07-16] MEDS: MUPIROCIN OINT 2%, 22GM NAS SCH ×2 (09:27→21:19)
[2019-07-16] MEDS: TAMSULOSIN 0.4 MG CAP.ER.24H PO SCH (09:28)
[2019-07-16] MEDS: DOCUSATE 100 MG CAPSULE PO SCH ×2 (09:28→21:00)
[2019-07-16] MEDS: POTASSIUM CHLORIDE 20 MEQ TAB.ER.PRT PO SCH (09:29)
[2019-07-16] MEDS: FAMOTIDINE 20 MG TABLET PO SCH ×2 (09:29→21:18)
[2019-07-16] MEDS ORDERED: FENTANYL REMOVE PATCH NOTE XX SCH (09:30)
[2019-07-16] MEDS: FUROSEMIDE 40 MG/4 ML IV SCH (09:31)
[2019-07-16] MEDS: SODIUM CHLORIDE FLUSH 10ML SYR IVF SCH ×4 (09:31→21:18)
[2019-07-16] MEDS: SULFAMETH./TRIMETHOPRIM DS 800MG/160MG TABLET PO SCH ×2 (09:32→21:18)
[2019-07-16] MEDS: METOPROLOL TARTRATE 25 MG TAB PO SCH ×2 (09:44→21:18)
[2019-07-16] MEDS: FENTANYL 25 MCG PATCH TD SCH (10:12)
[2019-07-16 13:24] VITALS: BP 133/74
[2019-07-16] MEDS ORDERED: WARFARIN 3 MG TABLET PO-COUM ONE (18:00)
[2019-07-16 20:27] VITALS: BP 148/82
[2019-07-16] MEDS: ATORVASTATIN 40 MG TABLET PO SCH (21:18)
[2019-07-17 02:13] VITALS: BP 129/73
[2019-07-17 05:10] VITALS: BP 134/76
[2019-07-17] MEDS: GABAPENTIN 100 MG CAPSULE PO SCH ×4 (05:17→21:25)
[2019-07-17] MEDS: KETOROLAC 30 MG/1 ML IV PRN ×2 (05:17→21:38)
[2019-07-17] MEDS: METOPROLOL TARTRATE 25 MG TAB PO SCH ×2 (05:18→17:42)
[2019-07-17 06:15] LABS: BASOPHILS # (AUTO) 0.01 x10^3/uL (0-0.1); BASOPHILS % (AUTO) 0 % (0-1); EOSINOPHILS # (AUTO) 0.19 x10^3/uL (0-0.4); EOSINOPHILS % (AUTO) 2 % (1-7); LYMPHOCYTES % (AUTO) 7 % (22-44); MD NO; MEAN CORPUSCULAR HEMOGLOBIN 26.5 pg (27.5-34.5); MEAN CORPUSCULAR HGB CONC 32.6 g/dL (33.2-36.2); MEAN CORPUSCULAR VOLUME 81.3 fL (81-97); MEAN PLATELET VOLUME 8.3 fL (7.4-10.4); MONOCYTES # (AUTO) 0.56 x10^3/uL (0.2-0.8); MONOCYTES % (AUTO) 6 % (2-9); NEUTROPHILS # (AUTO) 7.65 x10^3/uL (1.8-6.8); NEUTROPHILS % (AUTO) 85 % (42-75); PLATELET COUNT 173 x10^3/uL (130-400); RED BLOOD COUNT 3.01 x10^6/uL (4.38-5.82)
[2019-07-17 06:18] LABS: INTERNATIONAL NORMALIZED RATIO 1.37 (0.93-1.1); PROTHROMBIN TIME 14.6 Seconds (9.6-11.5)
[2019-07-17 06:23] LABS: ANION GAP 4 mmol/L (5-15); CALCIUM 7.9 mg/dL (8.5-10.1); CHLORIDE 104 mmol/L (98-107)
[2019-07-17 06:24] LABS: CREATININE 1.01 mg/dL (0.7-1.3)
[2019-07-17 07:27] VITALS: BP 131/80
[2019-07-17] MEDS: LUBIPROSTONE 24 MCG CAPSULE PO SCH ×2 (08:38→16:28)
[2019-07-17] MEDS: ASPIRIN 81 MG TABLET EC PO SCH (08:38)
[2019-07-17] MEDS: TAMSULOSIN 0.4 MG CAP.ER.24H PO SCH (08:38)
[2019-07-17] MEDS: DOCUSATE 100 MG CAPSULE PO SCH ×2 (08:38→21:00)
[2019-07-17] MEDS: AMITRIPTYLINE 10 MG TABLET PO SCH ×3 (08:38→21:25)
[2019-07-17] MEDS: FAMOTIDINE 20 MG TABLET PO SCH ×2 (08:39→21:25)
[2019-07-17] MEDS: FUROSEMIDE 40 MG/4 ML IV SCH (08:39)
[2019-07-17] MEDS: SODIUM CHLORIDE FLUSH 10ML SYR IVF SCH ×4 (08:39→21:27)
[2019-07-17] MEDS: SULFAMETH./TRIMETHOPRIM DS 800MG/160MG TABLET PO SCH ×2 (08:39→21:25)
[2019-07-17] MEDS: POTASSIUM CHLORIDE 20 MEQ TAB.ER.PRT PO SCH (08:40)
[2019-07-17] MEDS: MUPIROCIN OINT 2%, 22GM NAS SCH ×2 (08:40→21:26)
[2019-07-17] MEDS: FINASTERIDE 5 MG TABLET PO SCH (08:46)
[2019-07-17] MEDS ORDERED: Sulfameth./Trimethoprim Ds PO (09:10)
[2019-07-17] MEDS ORDERED: OXYC5TAB3 PO (09:10)
[2019-07-17] MEDS ORDERED: WARF5TAB PO (09:10)
[2019-07-17] MEDS ORDERED: POTA20TA6 PO (09:10)
[2019-07-17] MEDS ORDERED: FURO40TA6 PO (09:10)
[2019-07-17 14:29] VITALS: BP 120/70
[2019-07-17] MEDS ORDERED: WARFARIN 10 MG TABLET PO-COUM ONE (18:00)
[2019-07-17 20:08] VITALS: BP 140/85
[2019-07-17] MEDS: ATORVASTATIN 40 MG TABLET PO SCH (21:25)
[2019-07-18 02:25] VITALS: BP 123/74
[2019-07-18] MEDS: METOPROLOL TARTRATE 25 MG TAB PO SCH (05:37)
[2019-07-18] MEDS: GABAPENTIN 100 MG CAPSULE PO SCH ×2 (05:37→12:34)
[2019-07-18 05:59] LABS: INTERNATIONAL NORMALIZED RATIO 2.11 (0.93-1.1); PROTHROMBIN TIME 22.5 Seconds (9.6-11.5)
[2019-07-18 06:05] LABS: ANION GAP 3 mmol/L (5-15); CALCIUM 8.3 mg/dL (8.5-10.1); CHLORIDE 105 mmol/L (98-107)
[2019-07-18 06:07] LABS: CREATININE 1.12 mg/dL (0.7-1.3)
[2019-07-18 06:21] LABS: BASOPHILS # (AUTO) 0.07 x10^3/uL (0-0.1); BASOPHILS % (AUTO) 1 % (0-1); EOSINOPHILS # (AUTO) 0.23 x10^3/uL (0-0.4); EOSINOPHILS % (AUTO) 3 % (1-7); LYMPHOCYTES # (AUTO) 0.94 x10^3/uL (1-3.4); LYMPHOCYTES % (AUTO) 12 % (22-44); MD NO; MEAN CORPUSCULAR HEMOGLOBIN 26.4 pg (27.5-34.5); MEAN CORPUSCULAR HGB CONC 32.4 g/dL (33.2-36.2); MEAN CORPUSCULAR VOLUME 81.6 fL (81-97); MEAN PLATELET VOLUME 7.6 fL (7.4-10.4); MONOCYTES # (AUTO) 0.65 x10^3/uL (0.2-0.8); MONOCYTES % (AUTO) 8 % (2-9); NEUTROPHILS # (AUTO) 6.13 x10^3/uL (1.8-6.8); NEUTROPHILS % (AUTO) 76 % (42-75); PLATELET COUNT 227 x10^3/uL (130-400); RED BLOOD COUNT 3.23 x10^6/uL (4.38-5.82)
[2019-07-18 07:49] VITALS: BP 129/73
[2019-07-18] MEDS: ASPIRIN 81 MG TABLET EC PO SCH (08:42)
[2019-07-18] MEDS: FAMOTIDINE 20 MG TABLET PO SCH (08:42)
[2019-07-18] MEDS: AMITRIPTYLINE 10 MG TABLET PO SCH (08:42)
[2019-07-18] MEDS: POTASSIUM CHLORIDE 20 MEQ TAB.ER.PRT PO SCH (08:42)
[2019-07-18] MEDS: TAMSULOSIN 0.4 MG CAP.ER.24H PO SCH (08:42)
[2019-07-18] MEDS: LUBIPROSTONE 24 MCG CAPSULE PO SCH (08:42)
[2019-07-18] MEDS: DOCUSATE 100 MG CAPSULE PO SCH (08:42)
[2019-07-18] MEDS: SULFAMETH./TRIMETHOPRIM DS 800MG/160MG TABLET PO SCH (08:42)
[2019-07-18] MEDS: FUROSEMIDE 40 MG/4 ML IV SCH (08:43)
[2019-07-18] MEDS: FINASTERIDE 5 MG TABLET PO SCH (08:43)
[2019-07-18] MEDS: SODIUM CHLORIDE FLUSH 10ML SYR IVF SCH ×2 (08:43)
[2019-07-18 15:19] VITALS: BP 123/71
[2019-07-18] MEDS ORDERED: WARFARIN 2 MG TABLET PO-COUM ONE (18:00)
== END 2019-07-18 16:47 | disposition home health service (06) | DRG 219 ==
LOC: 5SO 11:34 → ORIP 11:34 → UNDOADMIN 11:34 → CCU 07-13 09:55 → 5SO 07-15 11:16
PROVIDERS: ADMIT Thoracic Surgery (Cardiothoracic Vascular Surgery); ATTEND Thoracic Surgery (Cardiothoracic Vascular Surgery)
PROC: 0T9B70Z Drainage of Bladder with Drainage Device, Via Natural or Artificial Opening (ICD-10-PCS; 2019-07-12)
PROC: 02BG0ZZ Excision of Mitral Valve, Open Approach (ICD-10-PCS; 2019-07-13)
PROC: 021109W Bypass Coronary Artery, Two Arteries from Aorta with Autologous Venous Tissue, Open Approach (ICD-10-PCS; 2019-07-13)
PROC: 06BP4ZZ Excision of Right Saphenous Vein, Percutaneous Endoscopic Approach (ICD-10-PCS; 2019-07-13)
PROC: 5A1221Z Performance of Cardiac Output, Continuous (ICD-10-PCS; 2019-07-13)
PROC: B24BZZ4 Ultrasonography of Heart with Aorta, Transesophageal (ICD-10-PCS; 2019-07-13)
PROC: 03HY32Z Insertion of Monitoring Device into Upper Artery, Percutaneous Approach (ICD-10-PCS; 2019-07-13)
PROC: 02HQ32Z Insertion of Monitoring Device into Right Pulmonary Artery, Percutaneous Approach (ICD-10-PCS; 2019-07-13)
PROC: 02UG0JZ Supplement Mitral Valve with Synthetic Substitute, Open Approach (ICD-10-PCS; principal; 2019-07-13 07:30)
DX: I34.0 Nonrheumatic mitral (valve) insufficiency (principal); I50.33 Acute on chronic diastolic (congestive) heart failure; N39.0 Urinary tract infection, site not specified; I38 Endocarditis, valve unspecified; F41.9 Anxiety disorder, unspecified; G89.29 Other chronic pain; Z95.1 Presence of aortocoronary bypass graft; I25.10 Atherosclerotic heart disease of native coronary artery without angina pectoris; N40.1 Benign prostatic hyperplasia with lower urinary tract symptoms; R33.8 Other retention of urine; Z95.0 Presence of cardiac pacemaker; M45.9 Ankylosing spondylitis of unspecified sites in spine
CPT/HCPCS: 36415; 36600; 71045; 71046; 76604; 80048; 80053; 81001; 82040; 82330; 82800; 82803; 82810; 82947; 82962; 83036; 83735; 84132; 84295; 85014; 85018; 85025; 85049; 85347; 85610; 85730; 86850; 86900; 86923; 87077; 87081; 87086; 87186; 88305; 93005; 93312; 93321; 93325; 93880; 93970; 94002; 94150; G0378; J0171; J0697; J1170; J1644; J1815; J1885; J1940; J2250; J2704; J3010; J3370; J3475; J3480; P9045; P9047; C1751; C1760; J2370; J2440; J7050; J7120; Q0177

== ENCOUNTER 2020-02-20 08:50 | Outpatient (CLI) | payer MEDICARE, MEDICAID ==
[~2020-02-20 08:50] MED LIST changes: +AMIT10TA PO; +ASPI-496 PO; +FINA5TAB4 PO; +FURO20TA3 PO; +FURO40TA6 PO; +GABA100C PO; +ISOS10TA6 PO; +LUBI24CA7 PO; +OXYC5TAB3 PO; +POTA10TA6 PO; +POTA20TA6 PO; +SENN15TA PO; +SENN1TAB67 PO; +Sulfameth./Trimethoprim Ds PO; +WARF5TAB2 PO; +[UNRECOGNIZED DRUG - CODE] TD
[2020-02-20 09:55] LABS: ALANINE AMINOTRANSFERASE 26 U/L (12-78); ALBUMIN 3.5 g/dL (3.4-5.0); ANION GAP 7 mmol/L (5-15); CALCIUM 9.1 mg/dL (8.5-10.1); CHLORIDE 110 mmol/L (98-107)
[2020-02-20 09:58] LABS: ALKALINE PHOSPHATASE 128 U/L (45-117); BILIRUBIN,TOTAL 0.7 mg/dL (0.2-1.0); CHOLESTEROL, TOTAL 122 mg/dL (140-239); CREATININE 1.34 mg/dL (0.7-1.3); HDL CHOL % 50 % (26-37); HDL CHOLESTEROL (DIRECT) 61 mg/dL (40-60); LDL CHOLESTEROL,CALCULATED 24 mg/dL (54-169); LDL/HDL RATIO 0.4 (0.5-3.0); TRIGLYCERIDES 184 mg/dL (50-200); VLDL CHOLESTEROL 37 mg/dL (0-25)
== END 2020-02-20 23:59 | disposition home or self-care (01) ==
LOC: CVU 08:50
PROVIDERS: ATTEND Physician Assistant Medical
DX: I34.0 Nonrheumatic mitral (valve) insufficiency (principal); I12.9 Hypertensive chronic kidney disease with stage 1 through stage 4 chronic kidney disease, or unspecified chronic kidney disease; E78.2 Mixed hyperlipidemia; I25.10 Atherosclerotic heart disease of native coronary artery without angina pectoris; I27.20 Pulmonary hypertension, unspecified; I47.1 Supraventricular tachycardia; N18.9 Chronic kidney disease, unspecified
CPT/HCPCS: 36415; 80053; 80061; 93308; 93321; 93325